=== PATIENT | male | born 1970 | race Caucasian/White ===

== ENCOUNTER → 2022-10-07 | Outpatient (CLI) | payer OTHER | LOC: M RAD 14:12 | DX: Z12.2 Encounter for screening for malignant neoplasm of respiratory organs (principal); F17.200 Nicotine dependence, unspecified, uncomplicated; J84.10 Pulmonary fibrosis, unspecified; I77.810 Thoracic aortic ectasia ==

== ENCOUNTER → 2023-05-30 | Outpatient (CLI) | payer OTHER ==
[~2023-05-30] MED LIST: ISOVUE-370 76% 100ML VIAL As Ordered ONE
== END ==
LOC: M RAD 15:45
PROVIDERS: ATTEND Urology
DX: R31.0 Gross hematuria (principal); N28.89 Other specified disorders of kidney and ureter; Q63.1 Lobulated, fused and horseshoe kidney
CPT/HCPCS: 74178; Q9967

== ENCOUNTER → 2023-08-08 | Outpatient (CLI) | payer OTHER ==
[2023-08-08 13:45] LABS: HEMATOCRIT 39.1 % (42.0-52.0); HEMOGLOBIN 12.9 g/dl (13.5-17.5); MEAN CORPUSCULAR HEMOGLOBIN 31.2 pg (27.0-33.0); MEAN CORPUSCULAR VOLUME 94.7 fl (80.0-96.0); PLATELET COUNT, AUTOMATED 124 10^3/uL (150-450); RED BLOOD COUNT 4.13 10^6/uL (4.30-6.10); WHITE BLOOD COUNT 4.8 10^3/uL (4.0-10.0)
[2023-08-08 13:49] LABS: CALCIUM LEVEL 9.6 MG/DL (8.5-10.1); CREATININE FOR GFR 1.34 MG/DL (0.70-1.30); GLOMERULAR FILTRATION RATE 59.4 (>56)
== END ==
LOC: M PLALAB 09:13
PROVIDERS: ATTEND Urology
DX: C64.2 Malignant neoplasm of left kidney, except renal pelvis (principal)

== ENCOUNTER → 2023-08-14 | Outpatient (CLI) | payer OTHER | LOC: M RAD 12:36 | PROVIDERS: ATTEND Urology | DX: Z96.0 Presence of urogenital implants (principal) ==

== ENCOUNTER → 2023-09-04 | Outpatient (CLI) | payer OTHER | LOC: M RAD 12:39 | PROVIDERS: ATTEND Specialist | DX: C64.9 Malignant neoplasm of unspecified kidney, except renal pelvis (principal) | CPT/HCPCS: 71260; Q9967 ==

== ENCOUNTER → 2023-09-11 | Outpatient (CLI) | payer OTHER ==
[~2023-09-11] VITALS: Ht 175.3 cm; Wt 111.0 kg
[~2023-09-11] MED LIST changes: -ISOVUE-370 76% 100ML VIAL As Ordered ONE; +LIDOCAINE 1% MDV 20ML VIAL As Ordered ONE; +LIDOCAINE W/EPINEPHRINE 1% 20ML VIAL As Ordered ONE; +MIDAZOLAM INJ 2MG/2ML VIAL As Ordered ONE; +ceFAZolin 2 GM/D5W 50 ML IV BAG As Ordered ONE; +fentaNYL 100 MCG/2 ML INJECTION As Ordered ONE
[2023-09-11 13:38] VITALS: TEMP 98.4
[2023-09-11] MEDS: ceFAZolin SOD 2 GM in IV 1 EA IV ONE (15:00)
[2023-09-11 16:20] VITALS: BP 141/89; O2SAT 99
== END ==
LOC: M IRPRO 13:20
PROVIDERS: ATTEND Specialist
DX: C64.9 Malignant neoplasm of unspecified kidney, except renal pelvis (principal)
CPT/HCPCS: 36561; 99152; 99153; J0690; J2250; J3010

== ENCOUNTER → 2024-05-11 | Outpatient (CLI) | payer OTHER ==
[~2024-05-11] MED LIST changes: +GASTROGRAFIN SOLUTION 30ML ONE; +ISOVUE-370 76% 100ML VIAL ONE; +LEVO100T5 PO; +LEVO25TA5 PO; +LEVO50TA5 PO; -LIDOCAINE 1% MDV 20ML VIAL As Ordered ONE; -LIDOCAINE W/EPINEPHRINE 1% 20ML VIAL As Ordered ONE; -MIDAZOLAM INJ 2MG/2ML VIAL As Ordered ONE; -ceFAZolin 2 GM/D5W 50 ML IV BAG As Ordered ONE; -fentaNYL 100 MCG/2 ML INJECTION As Ordered ONE
== END ==
LOC: M PLAIMG 08:28
PROVIDERS: ATTEND Specialist
DX: C64.9 Malignant neoplasm of unspecified kidney, except renal pelvis (principal); R16.0 Hepatomegaly, not elsewhere classified
CPT/HCPCS: 71260; 74177; Q9963; Q9967

== ENCOUNTER → 2024-10-18 | Outpatient (CLI) | payer OTHER ==
[~2024-10-18] MED LIST changes: -GASTROGRAFIN SOLUTION 30ML ONE; -ISOVUE-370 76% 100ML VIAL ONE
[2024-10-18 18:00] LABS: ALBUMIN 3.5 G/DL (3.2-5.2); ALKALINE PHOSPHATASE 62 U/L (40-129); ALT/SGPT 63 U/L (7.0-40); AST/SGOT 59 U/L (<34); BILIRUBIN,TOTAL 1.5 MG/DL (0.3-1.2); BLOOD UREA NITROGEN 12 MG/DL (9-23); CALCIUM LEVEL 9.3 MG/DL (8.5-10.1); CARBON DIOXIDE LEVEL 25 MMOL/L (20-31); CHLORIDE LEVEL 108 MMOL/L (98-107); CREATININE FOR GFR 1.24 MG/DL (0.70-1.30); GLOMERULAR FILTRATION RATE > 60.0 (>56); GLUCOSE, FASTING 105 MG/DL (60-100); POTASSIUM SERUM 3.7 MMOL/L (3.5-5.1); SODIUM LEVEL 141 MMOL/L (136-145); TOTAL PROTEIN 7.7 G/DL (5.7-8.2)
== END ==
LOC: M LAB 16:37
PROVIDERS: ATTEND Internal Medicine Medical Oncology
DX: C64.9 Malignant neoplasm of unspecified kidney, except renal pelvis (principal)

== ENCOUNTER → 2024-10-18 | Outpatient (CLI) | payer OTHER ==
[~2024-10-18] MED LIST changes: +ISOVUE-370 76% 100ML VIAL As Ordered ONE
== END ==
LOC: M RAD 16:06
PROVIDERS: ATTEND Internal Medicine Hematology & Oncology
DX: Z85.528 Personal history of other malignant neoplasm of kidney (principal); Z90.5 Acquired absence of kidney; K57.30 Diverticulosis of large intestine without perforation or abscess without bleeding
CPT/HCPCS: 71260; 74177; Q9967

== ENCOUNTER 2025-03-02 10:24 | Day surgery (SDC) | payer OTHER ==
[~2025-03-02] VITALS: Ht 172.7 cm; Wt 112.8 kg
[~2025-03-02 10:24] MED LIST changes: -ISOVUE-370 76% 100ML VIAL As Ordered ONE; +LEVO150T7 PO; +LIDOCAINE 2% 100 MG/5 ML SDV (FOR ANES.) As Ordered ONE; +ONDANSETRON 4MG 2ML VIAL As Ordered ONE; +ROCURONIUM BROMIDE 50MG/5ML VIAL As Ordered ONE; +SUGAMMADEX SODIUM 500 MG/5 ML VIAL As Ordered ONE; +dexAMETHasone 4 MG/ML 1 ML VIAL As Ordered ONE
[2025-03-02] MEDS ORDERED: LEVO100T5 PO (10:40)
[2025-03-02] MEDS ORDERED: LEVO25TA5 PO (10:40)
[2025-03-02] MEDS ORDERED: HOME MED LIST COMPLETE! XX SCH (10:45)
[2025-03-02] MEDS ORDERED: HYDROmorphone HCL 2 MG/ML 1 ML VIAL As Ordered ONE (11:45)
[2025-03-02] MEDS ORDERED: MIDAZOLAM INJ 2 MG/2 ML VIAL As Ordered ONE (11:45)
[2025-03-02] MEDS ORDERED: LACRILUBE (AKWA TEARS) OPHTH OINT 3.5 GM As Ordered ONE (12:19)
[2025-03-02] MEDS ORDERED: ACETAMINOPHEN 325 MG TAB PO PRN (12:55)
[2025-03-02] MEDS ORDERED: ONDANSETRON 4MG 2ML VIAL IV PRN ×2 (12:55→18:05)
[2025-03-02] MEDS ORDERED: PERCOCET 5MG/325MG TAB PO PRN ×2 (12:55)
[2025-03-02] MEDS: ceFAZolin SOD 2 GM IV ONCE IV ONE (12:59)
[2025-03-02] MEDS: HEPARIN SOD 5000 UNITS/ML 1 ML VIAL/SYRINGE SQ ONE (12:59)
[2025-03-02] MEDS ORDERED: ACETAMINOPHEN 1000MG/100ML IV BAG As Ordered ONE (13:41)
[2025-03-02] MEDS ORDERED: dexmedeTOMIDine (4 MCG/ML) 200 MCG/50 ML BTL As Ordered ONE (13:41)
[2025-03-02] MEDS: LIDOCAINE 1% SDV 30 ML VIAL As Ordered ONE (17:45)
[2025-03-02] MEDS ORDERED: HYDROMORPHONE HCL 0.5 MG/0.5 ML SYRINGE IV PRN (18:05)
[2025-03-02 18:55] VITALS: BP 124/58; TEMP 98.5; O2SAT 92
[2025-03-02 19:25] VITALS: BP 121/59; TEMP 97.1; O2SAT 95
[2025-03-02] MEDS: NS (Normal Saline) 0.9% 1,000 ML IV SCH (19:45)
[2025-03-02 19:52] LABS: PLATELET COUNT, AUTOMATED 96 10^3/uL (150-450)
[2025-03-02 20:02] LABS: CALCIUM LEVEL 8.4 MG/DL (8.5-10.1); CARBON DIOXIDE LEVEL 20.0 MMOL/L (20-31); CHLORIDE LEVEL 107.0 MMOL/L (98-107); CREATININE FOR GFR 1.4 MG/DL (0.70-1.30); GLOMERULAR FILTRATION RATE 59.4 (>56); POTASSIUM SERUM 4.1 MMOL/L (3.5-5.1); SODIUM LEVEL 142.0 MMOL/L (136-145)
[2025-03-02] MEDS: LR 1,000 ML IV SCH (20:35)
[2025-03-02] MEDS: ceFAZolin SOD 1 GM in DEXTROSE 5% (D5W) ADV/MINI-BAG 50 ML IV SCH (20:48)
[2025-03-02] MEDS: DOCUSATE SODIUM 100 MG CAPSULE PO SCH (20:48)
[2025-03-02 21:00] VITALS: BP 117/52; TEMP 97.2; O2SAT 95
[2025-03-02] MEDS: HEPARIN SOD 5000 UNITS/ML 1 ML VIAL/SYRINGE SC SCH (21:09)
[2025-03-02 22:03] VITALS: BP 122/55; TEMP 97.7; O2SAT 95
[2025-03-02 23:00] VITALS: BP 142/63; TEMP 97.8; O2SAT 94
[2025-03-03] VITALS: BP 138/63; TEMP 98; O2SAT 94
[2025-03-03 04:02] VITALS: BP 135/63; TEMP 97.8; O2SAT 96
[2025-03-03 05:09] VITALS: O2SAT 97
[2025-03-03] MEDS: LEVOTHYROXINE 125 MCG TABLET (0.125 MG) PO SCH (05:34)
[2025-03-03 05:45] LABS: PLATELET COUNT, AUTOMATED 92 10^3/uL (150-450)
[2025-03-03 06:01] LABS: CALCIUM LEVEL 8.5 MG/DL (8.5-10.1); CARBON DIOXIDE LEVEL 24.0 MMOL/L (20-31); CHLORIDE LEVEL 106.0 MMOL/L (98-107); CREATININE FOR GFR 1.36 MG/DL (0.70-1.30); GLOMERULAR FILTRATION RATE 61.5 (>56); POTASSIUM SERUM 4.0 MMOL/L (3.5-5.1); SODIUM LEVEL 139.0 MMOL/L (136-145)
[2025-03-03 08:00] VITALS: BP 116/56; TEMP 98.1; O2SAT 97
[2025-03-03] MEDS ORDERED: PERCOCET PO (08:08)
[2025-03-03] MEDS ORDERED: COLA100C5 PO (08:08)
[2025-03-03] MEDS ORDERED: BACT800T5 PO (08:08)
[2025-03-29] MEDS ORDERED: LEVO100T5 PO (10:48)
[2025-03-29] MEDS ORDERED: LEVO25TA5 PO (10:48)
== END 2025-03-03 12:16 | disposition home or self-care (01) ==
LOC: M SDC 10:24 → UNDOADMOB 19:12 → M MS4PR 19:12 → M SDC 03-03 12:16 → UNDODISOB 03-03 12:16
PROVIDERS: ATTEND Urology
DX: C61 Malignant neoplasm of prostate (principal); G47.33 Obstructive sleep apnea (adult) (pediatric); E03.9 Hypothyroidism, unspecified; F17.210 Nicotine dependence, cigarettes, uncomplicated; Z79.899 Other long term (current) drug therapy; Z92.21 Personal history of antineoplastic chemotherapy
CPT/HCPCS: 36415; 38571; 55866; 80048; 85027; 85049; 85055; 86850; 86900; 86901; 88305; 88309; 96361; 96365; 96366; 96372; J0131; J0665; J0690; J1100; J1171; J2250; J2405; J2765; J3010; S2900

== ENCOUNTER → 2025-07-25 | Outpatient (CLI) | payer OTHER ==
[~2025-07-25] VITALS: Ht 172.7 cm; Wt 120.0 kg
[~2025-07-25] MED LIST changes: +BACT800T5 PO; +COLA100C5 PO; -LIDOCAINE 2% 100 MG/5 ML SDV (FOR ANES.) As Ordered ONE; -ONDANSETRON 4MG 2ML VIAL As Ordered ONE; +PERCOCET PO; -ROCURONIUM BROMIDE 50MG/5ML VIAL As Ordered ONE; -SUGAMMADEX SODIUM 500 MG/5 ML VIAL As Ordered ONE; -dexAMETHasone 4 MG/ML 1 ML VIAL As Ordered ONE
[2025-07-25 11:10] VITALS: TEMP 98.9
[2025-07-25] MEDS: NS (Normal Saline) 0.9% 1,000 ML IV SCH (12:15)
[2025-07-25] MEDS: ceFAZolin SODIUM 2 GM in DEXTROSE 5% (D5W) ADV/MINI-BAG 50 ML IV ONE (12:15)
[2025-07-25] MEDS: MIDAZOLAM INJ 2 MG/2 ML VIAL IV PRN (12:27)
[2025-07-25] MEDS: LIDOCAINE 1% MDV 20 ML VIAL SC SCH (12:32)
[2025-07-25 12:38] VITALS: BP 120/68; O2SAT 97
== END ==
LOC: M IRPRO 11:01
PROVIDERS: ATTEND Specialist
DX: D50.9 Iron deficiency anemia, unspecified (principal)
CPT/HCPCS: 36590; 99152; J0688; J2250; J3010